=== PATIENT | female | born 1995 | race Caucasian/White ===

== ENCOUNTER 2017-06-10 02:30 | Emergency (ER) | payer OTHER ==
[~2017-06-10] VITALS: Ht 172.7 cm; Wt 181.3 kg
[~2017-06-10 02:30] MED LIST: CHOL100027 PO; CLC6 PO; GLC/500 PO; INDO25CA14 PO
[2017-06-10 02:33] VITALS: Ht 172.7 cm; Wt 181.3 kg
[2017-06-10] MEDS ORDERED: SODIUM CHLORIDE 0.9% 1000ML 1,000 ML IV STA ×2 (02:41)
[2017-06-10] MEDS ORDERED: RANITIDINE HCL 50 MG/100 ML D5W IV STA (02:41)
[2017-06-10] MEDS: DICYCLOMINE HCL 10 MG/ML 2 ML AMP IM ONE ×2 (02:45→03:09)
[2017-06-10 03:24] LABS: BASO % 0.3 %; BASO ABS # 0.04 K/uL (0-0.2); COMPLETE YES; EOS % 2.8 %; HEMATOCRIT 38.3 % (37-47); IG% 0.3 %; LYMPH ABS # 3.33 K/uL (1.2-3.4); MEAN CELL VOLUME 85.1 fL (80-100); MEAN CORPUSCULAR HEMOGLOBIN 26.4 pg (25-34); MEAN CORPUSCULAR HGB CONC 31.1 g/dl (32-36); MEAN PLATELET VOLUME 10.1 fL (7.4-10.4); NEUT % 58.6 %; PLATELET COUNT 273 K/uL (130-400)
[2017-06-10] MEDS ORDERED: DICYCLOMINE HCL 10 MG CAP PO ONE (03:30)
[2017-06-10 03:48] LABS: PREG INTERNAL NEGATIVE QC NEG CLEAR BACKGROUND; PREG INTERNAL POSITIVE QC POS CONTROL LINE
[2017-06-10 03:54] LABS: BUN/CREATININE RATIO 10.9 (10-20); CALCIUM 9.1 mg/dl (8.5-10.1); CREATININE 0.95 mg/dl (0.60-1.20); MAGNESIUM 1.9 mg/dl (1.8-2.4); POTASSIUM 3.6 mmol/L (3.5-5.1)
[2017-06-10 04:05] LABS: THYROID STIMULATING HORMONE 3.85 uIu/ml (0.300-4.500)
--- NOTE | 2017-06-10 05:43 | EMERGENCY ROOM VISIT NOTE ---
History First contact with patient: 02:34 Chief Complaint: ANKLE PAIN Stated Complaint: ANKLE PAIN History of Present Illness The patient is a 21 year old female who presents to the Emergency Room with complaints of bilateral feet burning for the past day. No injury to the area. Patient also complains of chronic abdominal discomfort for quite some time described as bloating, ranging in severity 2 out of 10 throughout the abdomen. Status post cholecystectomy. Patient has a history of gout but this feels different. Patient denies chest pain, dyspnea, fever, chills, cough, congestion , nausea, vomiting, diarrhea, back pain, urinary symptoms. No diabetes per patient. Review of Systems See HPI for pertinent positives & negatives. A total of 10 systems reviewed and were otherwise negative. Past Medical/Surgical History Medical Problems: (1) Infection of joint of ankle Cholecystectomy, gout Social History Smoking Status: Current Some Day Smoker Drug Use: none Marital Status: Occupation Status: unemployed Current/Historical Medications No Active Prescriptions or Reported Meds Allergies Coded Allergies: No Known Allergies (Unverified , 06/10/17) Physical Exam Vital Signs Date Time Temp Pulse Resp B/P (MAP) Pulse Ox O2 Delivery O2 Flow Rate FiO2 06/10/17 04:53 67 18 95/60 95 Room Air 06/10/17 02:33 36.7 81 18 131/77 95 Room Air Physical Exam VITALS: Vitals are noted on the nurse's note and reviewed by myself. Vital signs stable. GENERAL: Pleasant female, in no acute distress, nondiaphoretic, well-developed well-nourished. SKIN: The skin was without rashes, erythema, edema, or bruising. There is no tenting of the skin. Capillary reflex less than 2 seconds. HEAD: Normocephalic atraumatic. EARS: External auditory canals clear, tympanic membranes pearly feliz without erythema or effusion bilaterally. EYES: Pupils equal round and reactive to light and accommodation. Conjunctivae without injection, sclerae without icterus. Extraocular movements intact. NOSE: Patent, turbinates without inflammation or discharge. MOUTH: Mucous membranes moist. Pharynx without erythema or exudate. Uvula midline. Airway patent. Tongue does not deviate. NECK: Supple without nuchal rigidity. No lymphadenopathy. No thyromegaly. Cervical spine is nontender. No JVD. HEART: Regular rate and rhythm without murmurs gallops or rubs. LUNGS: Clear to auscultation bilaterally without wheezes, rales or rhonchi. No dullness to percussion. No retractions or accessory muscle use. ABDOMEN: Positive bowel sounds x 4. Normal tympanic percussion. Soft, protuberant, obese, nontender, without masses or organomegaly. Ignacio sign negative. No guarding or rebound tenderness. MUSCULOSKELETAL: No muscle atrophy, erythema, or edema noted. NEURO: Patient was alert and oriented to person place and time. Normal sensation to light and sharp touch. No focal neurological deficits. Medical Decision & Procedures Laboratory Results 06/10/17 03:05 Red Blood Count 4.50, Mean Corpuscular Volume 85.1, Mean Corpuscular Hemoglobin 26.4, Mean Corpuscular Hemoglobin Concent 31.1, Mean Platelet Volume 10.1, Neutrophils (%) (Auto) 58.6, Lymphocytes (%) (Auto) 29.0, Monocytes (%) (Auto) 9.0, Eosinophils (%) (Auto) 2.8, Basophils (%) (Auto) 0.3, Neutrophils # (Auto) 6.74, Lymphocytes # (Auto) 3.33, Monocytes # (Auto) 1.03, Eosinophils # (Auto) 0.32, Basophils # (Auto) 0.04 06/10/17 03:05 Test 06/10/17 03:05 White Blood Count 11.50 K/uL (4.8-10.8) Red Blood Count 4.50 M/uL (4.2-5.4) Hemoglobin 11.9 g/dL (12.0-16.0) Hematocrit 38.3 % (37-47) Mean Corpuscular Volume 85.1 fL (80-100) Mean Corpuscular Hemoglobin 26.4 pg (25-34) Mean Corpuscular Hemoglobin Concent 31.1 g/dl (32-36) Platelet Count 273 K/uL (130-400) Mean Platelet Volume 10.1 fL (7.4-10.4) Neutrophils (%) (Auto) 58.6 % Lymphocytes (%) (Auto) 29.0 % Monocytes (%) (Auto) 9.0 % Eosinophils (%) (Auto) 2.8 % Basophils (%) (Auto) 0.3 % Neutrophils # (Auto) 6.74 K/uL (1.4-6.5) Lymphocytes # (Auto) 3.33 K/uL (1.2-3.4) Monocytes # (Auto) 1.03 K/uL (0.11-0.59) Eosinophils # (Auto) 0.32 K/uL (0-0.5) Basophils # (Auto) 0.04 K/uL (0-0.2) RDW Standard Deviation 45.0 fL (36.4-46.3) RDW Coefficient of Variation 14.5 % (11.5-14.5) Immature Granulocyte % (Auto) 0.3 % Immature Granulocyte # (Auto) 0.04 K/uL (0.00-0.02) Anion Gap 7.0 mmol/L (3-11) Est Creatinine Clear Calc Drug Dose 165.3 ml/min Estimated GFR () 99.9 Estimated GFR (Non- 86.2 BUN/Creatinine Ratio 10.9 (10-20) Calcium Level 9.1 mg/dl (8.5-10.1) Magnesium Level 1.9 mg/dl (1.8-2.4) Thyroid Stimulating Hormone (TSH) 3.850 uIu/ml (0.300-4.500) Human Chorionic Gonadotropin, Qual NEG (NEG) Medications Administered Medications (Trade) Dose Ordered Sig/Jacque Route Start Time Stop Time Status Last Admin Dose Admin Ranitidine HCl (zANTac IV) 50 mg NOW STAT IV 06/10/17 02:41 06/10/17 02:45 DC 06/10/17 03:09 50 MG Sodium Chloride 1,000 ml @ 999 mls/hr Q1H1M STAT IV 06/10/17 02:41 06/10/17 03:41 DC 06/10/17 03:09 999 MLS/HR Sodium Chloride 1,000 ml @ 125 mls/hr Q8H STAT IV 06/10/17 02:41 06/10/17 10:40 06/10/17 03:20 125 MLS/HR Dicyclomine HCl (Bentyl Cap) 20 mg NOW ONCE PO 06/10/17 03:30 06/10/17 03:31 DC 06/10/17 03:46 20 MG ED Course Prior records/ancillary studies reviewed. Triage Nursing notes reviewed. The patient's history was concerning for abdominal discomfort with the burning Differential diagnosis: Etiologies such as neuropathy, DVT, electrolyte abnormality, thyroid abnormality , appendicitis, diverticulitis, PUD, biliary pathology, UTI, pancreatitis, obstruction, mesenteric ischemia, aortic pathology, infections, inflammatory bowel disease, renal colic, as well as others were entertained. Physical examination findings: As above. ER treatment provided: Zantac, Bentyl On reassessment the patient felt better. Diagnostics interpreted by me: The labs revealed mild leukocytosis. No worrisome electrolyte abnormality Imaging studies: Negative for DVT Exam and history seem consistent with bilateral feet burning most likely neuropathy. He was neurovascularly and neurologically intact. She had ongoing abdominal bloating most likely IBS. She is advised to follow-up with GI for further evaluation and workup. She did not have acute abdomen on exam. She is well-appearing. She is tolerating fluids. She is advised to follow-up with family care in GI in a few days or here in the ER sooner for abdominal pain, fevers, vomiting, worsening signs or symptoms or as needed. By the evaluation outlined above emergent etiologies such as appendicitis, diverticulitis, PUD, biliary pathology, UTI, pancreatitis, obstruction, mesenteric ischemia, aortic pathology, infections, inflammatory bowel disease, renal colic, as well as others were deemed relatively unlikely. The pt informed about the findings as listed above. All questions were answered and pleased with the treatment. Return instructions were outlined and the patient was discharged in stable condition. Outpatient prescription management: Bentyl Referral: The patient was referred back to their primary care physician for follow-up in 2 to 3 days for a recheck of the current condition. Case reviewed with my attending Medical Decision As above Impression Primary Impression: Burning sensation of feet Additional Impression: Abdominal bloating Departure Information Dispostion Home / Self-Care Condition GOOD Prescriptions No Active Prescriptions or Reported Meds Referrals No Doctor, Assigned (PCP) Patient Instructions My [facility] Additional Instructions Bentyl 10 m tablet every 6 hours as needed for abdominal bloating and discomfort. Ibuprofen(Motrin, Advil) may be used for fever or pain. Use 600mg every six hours as needed. Take with food. Avoid using more than 2400mg in a 24 hour period. Do not use 2400mg per day for more than three consecutive days without physician direction. Prolonged inappropriate use can lead to stomach upset or ulcers. (AND/OR) Acetaminophen(Tylenol) may be used for fever or pain. Use 1000mg every six hours as needed. Avoid using more than 3000mg in a 24 hour period. Rest and drink plenty of fluids as tolerated. Continue current medications. Avoid strenuous activities and anything that worsens your pain. Resume normal activities once your symptoms resolve. Return to the ER immediately for abdominal pain, vomiting, fevers, chest pains , difficulty breathing, worsening of your condition, or as needed. Follow up with your primary physician in 2-3 days for a recheck of your current condition. Problem Qualifiers
[2017-06-10] MEDS ORDERED: DICY10CA55 PO (05:44)
--- NOTE | 2017-06-10 06:13 | DIAGNOSTIC IMAGING REPORT ---
VENOUS DOPPLER LW EXT BILAT HISTORY: Pain. Edema. leg swelling COMPARISON STUDY: None. FINDINGS: There is normal compressibility, flow, and augmentation within the bilateral lower extremity deep venous systems. IMPRESSION: No DVT within the right or left lower extremity. The above report was generated using voice recognition software. It may contain grammatical, syntax or spelling errors. Electronically signed by: Dieter Pena M.D. 06/10/2017 6:11 AM Dictated Date/Time: 06/10/2017 6:11 AM
[2017-06-10 06:17] VITALS: BP 139/91; PULSE 76; TEMP 36.6; O2SAT 98
== END 2017-06-10 06:19 | disposition home or self-care (01) ==
LOC: EDBD 02:30 → C.EDB 02:31
DX: R20.8 Other disturbances of skin sensation (principal); R14.0 Abdominal distension (gaseous); F17.210 Nicotine dependence, cigarettes, uncomplicated

== ENCOUNTER 2017-08-25 00:04 | Emergency (ER) | payer OTHER ==
[~2017-08-25] VITALS: Ht 172.7 cm; Wt 160.0 kg
[2017-08-25 00:12] VITALS: TEMP 36.5; Ht 172.7 cm; Wt 160.0 kg
[2017-08-25] MEDS ORDERED: ACETAMINOPHEN 500 MG TAB PO STA (00:35)
[2017-08-25 01:05] LABS: BASO % 0.4 %; BASO ABS # 0.05 K/uL (0-0.2); COMPLETE YES; EOS % 2.3 %; HEMATOCRIT 39.9 % (37-47); IG% 0.3 %; LYMPH % 20.9 %; LYMPH ABS # 2.64 K/uL (1.2-3.4); MEAN CELL VOLUME 84.4 fL (80-100); MEAN CORPUSCULAR HEMOGLOBIN 26.8 pg (25-34); MEAN CORPUSCULAR HGB CONC 31.8 g/dl (32-36); MEAN PLATELET VOLUME 10.3 fL (7.4-10.4); MONO % 9.1 %; PLATELET COUNT 285 K/uL (130-400); RED BLOOD COUNT 4.73 M/uL (4.2-5.4); WHITE BLOOD COUNT 12.64 K/uL (4.8-10.8)
[2017-08-25] MEDS ORDERED: CHOL1000 PO (01:17)
[2017-08-25] MEDS ORDERED: VENL150C56 PO (01:17)
[2017-08-25] MEDS ORDERED: PRENTAB26 PO (01:17)
[2017-08-25 01:24] LABS: BUN/CREATININE RATIO 9.9 (10-20); CALCIUM 9.2 mg/dl (8.5-10.1); CREATININE 0.82 mg/dl (0.60-1.20); POTASSIUM 3.8 mmol/L (3.5-5.1); URIC ACID 11.4 mg/dl (2.6-7.2)
[2017-08-25 01:27] LABS: ALB/GLOB RATIO 0.9 (0.9-2); C-REACTIVE PROTEIN 1.36 mg/dl (0-0.29)
[2017-08-25 01:56] LABS: PREG INTERNAL NEGATIVE QC NEG CLEAR BACKGROUND; PREG INTERNAL POSITIVE QC POS CONTROL LINE
[2017-08-25] MEDS ORDERED: CEPHALEXIN MONOHYDRATE 250 MG CAP PO STA (02:50)
[2017-08-25] MEDS ORDERED: COLCHICINE 0.6 MG TAB PO STA ×2 (02:50)
[2017-08-25] MEDS ORDERED: INDOMETHACIN 25 MG CAP PO STA (02:50)
[2017-08-25] MEDS ORDERED: CEPHALEXIN 500MG HOME PACK 1 EA BTL PO STA (02:50)
[2017-08-25] MEDS ORDERED: HYDR-5688 PO (03:16)
[2017-08-25] MEDS ORDERED: INDO50CA97 PO (03:16)
[2017-08-25] MEDS ORDERED: CEPH500C PO (03:16)
[2017-08-25] MEDS ORDERED: COLC0.6T54 PO (03:16)
--- NOTE | 2017-08-25 03:26 | EMERGENCY ROOM VISIT NOTE ---
History First contact with patient: 00:22 Chief Complaint: ANKLE PAIN Stated Complaint: SWOLLEN FOOT AND ANKLE History of Present Illness The patient is a 22 year old female who presents to the Emergency Room via private vehicle accompanied by boyfriend and female with complaints of "swollen foot and ankle". The patient states that she has been experiencing left foot and ankle pain, and today around 3 PM and acutely worsened. She states it began in her left great toe, and now it is in her foot and ankle. She rates the pain as a 10/10. She notes that she has a history of gouty arthritis in this ankle. She is never had pain like this though. She denies any trauma or injury. She states that she feels cold. Of additional note, she states that she believes she is . She has not had a menstrual cycle since April of last year. She states she was scheduled for an ultrasound which ago, but missed the appointment. She states she has PCOS. She states she had a positive urine test noting a faint positive line. Review of Systems A complete 10-point Review of Systems was discussed with the patient, with pertinent positives and negatives listed in the History of Present Illness. All remaining Review of Systems questions can be considered negative unless otherwise specified. Past Medical/Surgical History Medical Problems: (1) Infection of joint of ankle Social History Smoking Status: Never Smoker Drug Use: none Marital Status: Occupation Status: unemployed Current/Historical Medications Scheduled Cephalexin Monohydrate (Keflex), 500 MG PO QID Cholecalciferol (Vitamin D3), 1 TAB PO DAILY Colchicine (Colchicine), 0.6 MG PO BID Indomethacin (Indocin), 1 CAP PO TID Multivit/Min/Iron/Fol Ac/Pren ( Vitamin), 1 TAB PO DAILY Venlafaxine Hcl (Effexor Extended Rel), 150 MG PO DAILY Scheduled PRN Hydrocodone/Acetaminophen 5MG/325MG (Imbler 5MG/325MG), 1-2 TABLET PO Q6 PRN for Pain Physical Exam Vital Signs Date Time Temp Pulse Resp B/P (MAP) Pulse Ox O2 Delivery O2 Flow Rate FiO2 08/25/17 03:43 81 20 133/81 100 08/25/17 00:12 36.5 93 20 130/77 100 Room Air Physical Exam VITAL SIGNS - Vital signs and nursing notes were reviewed. Stable. GENERAL - []-year-old [] appearing [] stated age who is in no acute distress. Communicates well with provider and answers questions appropriately. SKIN - Without rashes. HEAD - NC/AT. EYES - PERRL with EOMI bilaterally. Sclera anicteric. Palpebral conjunctiva pink and moist with no injection noted. EARS - No deformities of external structures noted on gross examination bilaterally. No pain elicited with palpation of the tragus bilaterally. External auditory canals without discharge or otorrhea. Tympanic membranes pearly feliz without retraction or bulging. No fluid or purulent material visualized behind the TM. Handle of malleus, umbo, cone of light, pars tensa/ flaccid all easily visualized. NOSE - Midline and without cyanosis. No epistaxis or purulent drainage noted. Septum midline without deviation or septal hematoma noted. MOUTH/OROPHARYNX - Without perioral cyanosis. Buccal mucosa pink and moist and without leukoplakia. Tongue midline with equal elevation of palate bilaterally. No tonsillar hypertrophy, erythema, or exudates noted. [] dentition noted. NECK - Neck with FROM. Supple to palpation. [] lymphadenopathy noted. No nuchal rigidity. LUNGS - Chest wall symmetric without accessory muscle use, intercostals retractions, or central cyanosis. Normal vesicular breath sounds CTA B/L. No wheezes, rales, or rhonchi appreciated. CARDIAC - RRR with S1/S2. No murmur, rubs, or gallops appreciated. ABDOMEN - Abdominal contour [] without pulsations or visible masses. BS normoactive all four quadrants. No tenderness, palpable masses, hepatosplenomegaly, or ascites noted. EXTREMITIES - No clubbing or peripheral cyanosis. No pretibial edema present. +3 /5 radial, posterior tibial, and dorsalis pedis pulses palpated throughout. +5/ 5 strength noted in UE/LE bilaterally. NEUROLOGIC - Cranial nerves II through XII grossly intact. Sensory intact to light touch throughout. Patellar reflexes +2/4. PSYCH - A&Ox3 and cooperates fully with examiner. Pt is very pleasant and interacts well with examiner. Medical Decision & Procedures ER Provider Diagnostic Interpretation: L ANKLE MIN 3 VIEWS ROUTINE CLINICAL HISTORY: Left lower leg pain and edema COMPARISON: 03/04/2016 DISCUSSION: No fractures or dislocations are visualized. There is equivocal joint effusion. There is bimalleolar soft tissue swelling. There are no erosive or destructive changes. IMPRESSION: 1. Soft tissue swelling. Equivocal joint effusion. 2. No fractures identified. Electronically signed by: Israel Sargent M.D. 08/25/2017 6:52 AM Dictated Date/Time: 08/25/2017 6:51 AM L FOOT MIN 3 VIEWS ROUTINE CLINICAL HISTORY: LEFT FOOT EDEMA. COMPARISON: 03/04/2016 DISCUSSION: No acute fractures or dislocations are visualized. There are degenerative changes present at the level of the first metatarsal phalangeal joint. There is irregularity of the calcaneocuboid articulation. This is likely degenerative as this was present on the prior study and remains unchanged. There is diffuse soft tissue swelling. There is no erosive disease. IMPRESSION: Stable degenerative changes. No acute fractures. No evidence of erosive disease. Diffuse soft tissue swelling. Electronically signed by: Israel Sargent M.D. 08/25/2017 6:54 AM Dictated Date/Time: 08/25/2017 6:53 AM ULTRASOUND L VENOUS DOPP LOWER EXT UNILAT CLINICAL HISTORY: Left lower leg pain and edema COMPARISON STUDY: No previous studies for comparison. FINDINGS: Real-time and color flow Doppler imaging were performed. Flow was seen within the femoral, popliteal and calf veins with no intraluminal thrombus demonstrated. The saphenous vein is patent. Multiple prominent left inguinal lymph nodes are visualized. Most are fatty appearing. One has a mildly thickened cortex. These may be reactive. Clinical correlation is advocated. IMPRESSION: No evidence of left lower extremity DVT Electronically signed by: Israel Sargent M.D. 08/25/2017 6:41 AM Dictated Date/Time: 08/25/2017 6:39 AM Laboratory Results 08/25/17 00:50 Red Blood Count 4.73, Mean Corpuscular Volume 84.4, Mean Corpuscular Hemoglobin 26.8, Mean Corpuscular Hemoglobin Concent 31.8, Mean Platelet Volume 10.3, Neutrophils (%) (Auto) 67.0, Lymphocytes (%) (Auto) 20.9, Monocytes (%) (Auto) 9.1, Eosinophils (%) (Auto) 2.3, Basophils (%) (Auto) 0.4, Neutrophils # (Auto) 8.47, Lymphocytes # (Auto) 2.64, Monocytes # (Auto) 1.15, Eosinophils # (Auto) 0.29, Basophils # (Auto) 0.05 9/29/17 00:50 Test 08/25/17 00:50 White Blood Count 12.64 K/uL (4.8-10.8) Red Blood Count 4.73 M/uL (4.2-5.4) Hemoglobin 12.7 g/dL (12.0-16.0) Hematocrit 39.9 % (37-47) Mean Corpuscular Volume 84.4 fL (80-100) Mean Corpuscular Hemoglobin 26.8 pg (25-34) Mean Corpuscular Hemoglobin Concent 31.8 g/dl (32-36) Platelet Count 285 K/uL (130-400) Mean Platelet Volume 10.3 fL (7.4-10.4) Neutrophils (%) (Auto) 67.0 % Lymphocytes (%) (Auto) 20.9 % Monocytes (%) (Auto) 9.1 % Eosinophils (%) (Auto) 2.3 % Basophils (%) (Auto) 0.4 % Neutrophils # (Auto) 8.47 K/uL (1.4-6.5) Lymphocytes # (Auto) 2.64 K/uL (1.2-3.4) Monocytes # (Auto) 1.15 K/uL (0.11-0.59) Eosinophils # (Auto) 0.29 K/uL (0-0.5) Basophils # (Auto) 0.05 K/uL (0-0.2) RDW Standard Deviation 46.0 fL (36.4-46.3) RDW Coefficient of Variation 14.8 % (11.5-14.5) Immature Granulocyte % (Auto) 0.3 % Immature Granulocyte # (Auto) 0.04 K/uL (0.00-0.02) Erythrocyte Sedimentation Rate 46 mm/hr (0-21) Anion Gap 7.0 mmol/L (3-11) Est Creatinine Clear Calc Drug Dose 175.3 ml/min Estimated GFR () 118.6 Estimated GFR (Non- 102.3 BUN/Creatinine Ratio 9.9 (10-20) Uric Acid 11.4 mg/dl (2.6-7.2) Calcium Level 9.2 mg/dl (8.5-10.1) Total Bilirubin 0.4 mg/dl (0.2-1) Aspartate Amino Transf (AST/SGOT) 22 U/L (15-37) Alanine Aminotransferase (ALT/SGPT) 41 U/L (12-78) Alkaline Phosphatase 79 U/L (45-117) C-Reactive Protein 1.36 mg/dl (0-0.29) Total Protein 8.3 gm/dl (6.4-8.2) Albumin 3.9 gm/dl (3.4-5.0) Globulin 4.4 gm/dl (2.5-4.0) Albumin/Globulin Ratio 0.9 (0.9-2) Human Chorionic Gonadotropin, Qual NEG (NEG) Medications Administered Medications (Trade) Dose Ordered Sig/Jacque Route Start Time Stop Time Status Last Admin Dose Admin Acetaminophen (Tylenol Tab) 1,000 mg NOW STAT PO 08/25/17 00:35 08/25/17 00:37 DC 08/25/17 00:35 1,000 MG Cephalexin Monohydrate (Keflex 500MG Home Pack) 1 homepack NOW STAT PO 08/25/17 02:50 08/25/17 02:55 DC 08/25/17 03:42 1 HOMEPACK Cephalexin Monohydrate (Keflex Cap) 500 mg NOW STAT PO 08/25/17 02:50 08/25/17 02:55 DC 08/25/17 03:42 500 MG Colchicine (Colchicine Tab) 1.2 mg NOW STAT PO 08/25/17 02:50 08/25/17 02:55 DC 08/25/17 03:42 1.2 MG Colchicine (Colchicine Tab) 0.6 mg NOW STAT PO 08/25/17 02:50 08/25/17 02:55 DC 08/25/17 03:42 0.6 MG Indomethacin (Indocin Cap) 50 mg NOW STAT PO 08/25/17 02:50 08/25/17 02:55 DC 08/25/17 03:42 50 MG Medical Decision Patient was seen and evaluated as above. After obtaining a thorough history and physical examination IV access was initiated, and the above workup was performed. X-rays were obtained. HCG was ordered. HCG negative. X-rays reveal no acute process on my exam. Ultrasound was obtained and reveals lymph nodes, but no DVT. Her uric acid is high, and clinically she has gouty arthritis. CBC reveals leukocytosis of 12.64, ESR is at 46. Metabolic panel is unremarkable for emergent process. C-reactive protein is high protein. The patient will be treated with indomethacin, colchicine and Keflex to cover for any underlying infection as she does have a few open wounds on her skin. I do not believe she has septic arthritis. At this time she appears stable for outpatient management. She'll be given a short prescription for Imbler. Prior to departure she notes that her ride broke down, she is now waiting for ride. She was educated upon management, educated upon worrisome symptoms in which to return, had questions answered prior to discharge, and was discharged home in good condition. She is to receive 1.2 mg of colchicine here, followed by 0.6 mg in 1 hour. She will continue this twice a day for prevention. In the evaluation and treatment of this patient, the following differential diagnoses were considered: Ankle Fracture, septic joint, gouty arthritis, Ankle Sprain, Distal Fibula Fracture, Distal Tibia Fracture, Foot Fracture, Maisonneuve Fracture. Impression Primary Impression: Left ankle pain Additional Impression: Gouty arthritis Departure Information Dispostion Home / Self-Care Condition GOOD Prescriptions Indomethacin (INDOCIN) 50 Mg Cap 1 CAP PO TID for 10 Days, #30 CAP 1 Refill Prov: Trell Cruz PA-C 08/25/17 Hydrocodone/Acetaminophen 5MG/325MG (Imbler 5MG/325MG) Tab 1-2 TABLET PO Q6 Y for Pain, #15 TAB For Initial Treatment Prov: Trell Cruz PA-C 08/25/17 Colchicine (Colchicine) 0.6 Mg Tab 0.6 MG PO BID for 30 Days, #60 TAB Prov: Trell Cruz PA-C 08/25/17 Cephalexin Monohydrate (Keflex) 500 Mg Cap 500 MG PO QID for 7 Days, #28 CAP Prov: Trell Cruz PA-C 08/25/17 Referrals No Doctor, Assigned (PCP) Eder Huang D.O. Patient Instructions My [facility] Additional Instructions You have been treated in the Emergency Department for a left Ankle pain. NORCO: You have been prescribed NORCO to be used for pain control. This is a narcotic medication. You cannot drive or consume alcohol while on this medicine. This medicine should only be used for pain that cannot be controlled with [id number] pain medicines. (NO TYLENOL(ACETAMINOPHEN) with this) KEFLEX: antibiotic for potential infection. 500mg every 6 hours for 7 days. INDOMETHACIN: antiinflammatory for foot/gout. 50 mg 3 times daily until pain is tolerable then rapidly reduce dose to complete cessation of drug COLCHICINE: for gout. 0.6mg every 12 hours for gout. This can be for months but family doctor may continue/discontinue. For pain control, you can use the following [id number] medicines : - Regular strength (325mg/tab) Tylenol (acetaminophen) 2 tabs every 4-6 hours as needed. Do not exceed 12 tablets in a 24 hour period. Avoid taking more than 3 grams (3000 mg) of Tylenol per day. This includes any other sources of acetaminophen you may take on a regular basis. - Regular strength (200 mg/tab) Advil (ibuprofen) 1-2 tabs every 4-6 hours as needed. Do not exceed a dose of 3200 mg per day. If this is a recent injury (<24 hrs), ice can be applied to the area of pain for the first 3 days to help decrease pain and inflammation. You have been provided the number for an Orthopaedic Surgeon. You should call this number as soon as possible to establish a follow-up visit from today's Emergency Department visit. Keep the ankle brace/splint in place until cleared by Orthopedics. Use the crutches you have been provided to keep ALL weight off of the ankle until weight bearing is tolerable. Return to the Emergency Department if your current symptoms worsen despite treatment course outlined above, or if you develop any of the following symptoms : intractable pain despite aforementioned treatment course or new onset of numbness or tingling of the foot. Please follow up with OBGYN for no period for months. Please follow up with family doctor for enlarged lymph nodes in the left groin region. Please return with any new/concerning symptoms. Problem Qualifiers
[2017-08-25 03:43] VITALS: BP 133/81; PULSE 81; O2SAT 100
--- NOTE | 2017-08-25 06:42 | DIAGNOSTIC IMAGING REPORT ---
ULTRASOUND L VENOUS DOPP LOWER EXT UNILAT CLINICAL HISTORY: Left lower leg pain and edema COMPARISON STUDY: No previous studies for comparison. FINDINGS: Real-time and color flow Doppler imaging were performed. Flow was seen within the femoral, popliteal and calf veins with no intraluminal thrombus demonstrated. The saphenous vein is patent. Multiple prominent left inguinal lymph nodes are visualized. Most are fatty appearing. One has a mildly thickened cortex. These may be reactive. Clinical correlation is advocated. IMPRESSION: No evidence of left lower extremity DVT Electronically signed by: Israel Sargent M.D. 08/25/2017 6:41 AM Dictated Date/Time: 08/25/2017 6:39 AM
--- NOTE | 2017-08-25 06:53 | DIAGNOSTIC IMAGING REPORT ---
L ANKLE MIN 3 VIEWS ROUTINE CLINICAL HISTORY: Left lower leg pain and edema COMPARISON: 03/04/2016 DISCUSSION: No fractures or dislocations are visualized. There is equivocal joint effusion. There is bimalleolar soft tissue swelling. There are no erosive or destructive changes. IMPRESSION: 1. Soft tissue swelling. Equivocal joint effusion. 2. No fractures identified. Electronically signed by: Israel Sargent M.D. 08/25/2017 6:52 AM Dictated Date/Time: 08/25/2017 6:51 AM
--- NOTE | 2017-08-25 06:56 | DIAGNOSTIC IMAGING REPORT ---
L FOOT MIN 3 VIEWS ROUTINE CLINICAL HISTORY: LEFT FOOT EDEMA. COMPARISON: 03/04/2016 DISCUSSION: No acute fractures or dislocations are visualized. There are degenerative changes present at the level of the first metatarsal phalangeal joint. There is irregularity of the calcaneocuboid articulation. This is likely degenerative as this was present on the prior study and remains unchanged. There is diffuse soft tissue swelling. There is no erosive disease. IMPRESSION: Stable degenerative changes. No acute fractures. No evidence of erosive disease. Diffuse soft tissue swelling. Electronically signed by: Israel Sargent M.D. 08/25/2017 6:54 AM Dictated Date/Time: 08/25/2017 6:53 AM
== END 2017-08-25 03:44 | disposition home or self-care (01) ==
LOC: C.EDB 00:05
DX: M25.572 Pain in left ankle and joints of left foot (principal); M10.9 Gout, unspecified; Z79.899 Other long term (current) drug therapy